=== PATIENT | female | born 1970 | race Two or more races ===

== ENCOUNTER 2021-10-20 08:00 | Day surgery (SDC) | payer OTHER ==
[~2021-10-20] VITALS: Ht 157.5 cm; Wt 59.0 kg
[~2021-10-20 08:00] MED LIST: SYNTHROID150 MCG PO
== END 2021-10-20 20:35 | disposition home or self-care (01) ==
LOC: CIR.AMB 08:00
PROVIDERS: ATTEND Surgery
DX: D05.11 Intraductal carcinoma in situ of right breast (principal); Z17.0 Estrogen receptor positive status [ER+]; Z20.822 Contact with and (suspected) exposure to COVID-19; Z71.6 Tobacco abuse counseling; F17.210 Nicotine dependence, cigarettes, uncomplicated

== ENCOUNTER 2021-11-03 11:47 | Outpatient (CLI) | payer OTHER | END 2021-11-03 15:41 | disposition home or self-care (01) | LOC: SONOGRAMA 11:47 | PROVIDERS: ATTEND Surgery | DX: N60.12 Diffuse cystic mastopathy of left breast (principal) ==

== ENCOUNTER 2021-11-24 06:50 | Day surgery (SDC) | payer OTHER ==
[~2021-11-24] VITALS: Ht 157.5 cm; Wt 59.0 kg
== END 2021-11-24 16:30 | disposition home or self-care (01) ==
LOC: CIR.AMB 06:50
PROVIDERS: ATTEND Surgery
DX: D05.01 Lobular carcinoma in situ of right breast (principal); R59.0 Localized enlarged lymph nodes; N62 Hypertrophy of breast; D24.2 Benign neoplasm of left breast; Z41.1 Encounter for cosmetic surgery; Z71.6 Tobacco abuse counseling; F17.210 Nicotine dependence, cigarettes, uncomplicated; E03.9 Hypothyroidism, unspecified
CPT/HCPCS: 19303; 19340; 38525; 78195; L8600; A9541

== ENCOUNTER 2022-12-11 15:14 | Inpatient (IN) | payer OTHER ==
[~2022-12-11] VITALS: Ht 157.5 cm; Wt 59.0 kg
--- NOTE | 2022-12-11 15:46 | NUR ---
SE RECIBE PTE ALERTA Y ORIENTADA X3 LA MISMA REFIERE QUE DESDE EL NOREEN AMEZCUA PRESENTADO DOLOR ABDOMENAL EL CUAL EL SKYLAR DE HOY ES MAS INTENSO, REFIERE QUE LE DA PUNSADAS DE [place]. SE TOCA ABDOMEN EL CUAL SE SIENTE DEPREIBLE AL TACTO MAS LA MISMA REFIERE MUCHO DOLOR AL TOCAR, PTE COMENTA QUE A SENTIDO EL ABDOMEN MAS DISTENDIDO DE LO NORMAL. SE AOCMODA PTE EN AREA DE OBSERVACION.
--- NOTE | 2022-12-11 16:38 | NUR ---
PTE ALERTA,.ESTABLE Y ORIENTADA.SE EDUCA SOBRE EL TRATAMIENTO QUE RECIBIRA EN EL HOSPITAL Y ESTA REFIERE ENTENDER.SE LE JORGE MUESTRAS DE CARYN SAROJ ORDEN MEDICA
[2022-12-11 17:17] LABS: HEMATOCRIT 38.5 % (36.0-45.00); HEMOGLOBIN 13.2 g/dL (12.0-15.00); MEAN CELL VOLUME 97.4 fL (80.00-100.00); MEAN CORPUSCULAR HEMOGLOBIN 33.3 pg (27.00-32.0); MEAN CORPUSCULAR HGB CONC 34.2 g/dl (32.0-36.0); PLATELET COUNT 370 K/uL (150-450); RED BLOOD COUNT 3.95 M/uL (4.00-6.00); RED CELL DISTRIBUTION WIDTH 12.7 % (11.5-14.5)
[2022-12-11 17:54] LABS: ALBUMIN 3.5 gm/dL (3.4-5.0); BILIRUBIN TOTAL 1.65 mg/dL (0.3-1.2); CALCIUM 8.4 mg/dL (8.5-10.1); CREATININE SERUM 0.62 mg/dL (0.55-1.02); GFR 101.48; GLOBULINA 3.5 G/DL (2.4-3.5); POTASSIUM 3.43 mEq/L (3.5-5.1)
[2022-12-11 18:46] LABS: URINE BACTERIA 2193.4 uL (0.0-1933); URINE RBC 100.3 uL (0.0-20.8)
[2022-12-11 18:50] LABS: PH,URINE 5.5 (5.0-8.0); URINE APPEARANCE Clear; URINE BILIRRUBIN Negative (NEGATIVE); URINE BLOOD Large; URINE COLOR Yellow; URINE GLUCOSE Negative (NEGATIVE); URINE LEUKOCYTE Negative; URINE NITRATE Negative; URINE PROTEIN 30 (NEGATIVE)
[2022-12-11 22:28] LABS: INR 1.04; PARTIAL THROMBOPLASTIN TIME 28.2 SECONDS (22.0-34.0); PROTHROMBIN TIME 10.9 SECONDS (9.0-11.5)
[2022-12-12 17:17] LABS: URINE APPEARANCE Clear; URINE BACTERIA 94.3 uL (0.0-1933); URINE BILIRRUBIN Negative (NEGATIVE); URINE BLOOD Moderate; URINE COLOR Yellow; URINE EPITHELIAL CELLS 4.4 uL (0.0-38.8); URINE GLUCOSE Negative (NEGATIVE); URINE LEUKOCYTE Negative; URINE NITRATE Negative; URINE PROTEIN Negative (NEGATIVE); URINE RBC 71.6 uL (0.0-20.8)
[2022-12-13 06:35] LABS: HEMATOCRIT 32.9 % (36.0-45.00); HEMOGLOBIN 11.3 g/dL (12.0-15.00); MEAN CELL VOLUME 98.4 fL (80.00-100.00); MEAN CORPUSCULAR HEMOGLOBIN 33.9 pg (27.00-32.0); MEAN CORPUSCULAR HGB CONC 34.4 g/dl (32.0-36.0); PLATELET COUNT 318 K/uL (150-450); RED BLOOD COUNT 3.34 M/uL (4.00-6.00); RED CELL DISTRIBUTION WIDTH 12.5 % (11.5-14.5)
[2022-12-13 07:04] LABS: ALBUMIN 2.6 gm/dL (3.4-5.0); BILIRUBIN TOTAL 0.88 mg/dL (0.3-1.2); CREATININE SERUM 0.5 mg/dL (0.55-1.02); GFR 130.07; GLOBULINA 2.9 G/DL (2.4-3.5); MAGNESIUM 2.1 mg/dL (1.8-2.4); POTASSIUM 3.85 mEq/L (3.5-5.1); TOTAL PROTEIN 5.5 gm/dL (6.4-8.2)
[2022-12-13 07:13] LABS: C-REACTIVE PROTEIN 11.1 MG/DL (0.00-0.29)
== END 2022-12-14 20:18 | disposition home or self-care (01) | DRG 392 ==
LOC: ER 15:15 → MEDI 21:44
PROVIDERS: General Practice; Internal Medicine Infectious Disease; ADMIT Internal Medicine; ATTEND Internal Medicine
PROC: BW21YZZ Computerized Tomography (CT Scan) of Abdomen and Pelvis using Other Contrast (ICD-10-PCS; principal; 2022-12-11)
DX: K57.32 Diverticulitis of large intestine without perforation or abscess without bleeding (principal); K52.89 Other specified noninfective gastroenteritis and colitis; E03.9 Hypothyroidism, unspecified